=== PATIENT | female | born 1965 | race Caucasian/White ===

== ENCOUNTER 2016-08-17 13:21 | Emergency (ER) | payer BC ==
[2016-08-17 13:33] VITALS: BP 133/84
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
--- NOTE | 2016-08-17 14:27 | CT ---
CT maxillofacial Technique: Multiple axial sections were obtained through the maxillofacial region. Intravenous contrast was not utilized. Findings: Soft tissue swelling as well as soft tissue air identified within the right cheek. Mild areas of increased density within the subcutaneous fat of the right cheek are seen compatible with small areas of hematoma. Paranasal sinuses shows minimal mucosal thickening within the left sphenoid sinus. Small retention cyst is noted within the right maxillary sinus measuring 5 mm. Other sinuses are clear. No air-fluid levels are seen within the paranasal sinuses. No facial bone fracture is identified. Impression: 1. Soft tissue swelling/hematoma within the right cheek. Soft tissue air is noted within the right cheek and please correlate if there has been soft tissue injury. 2. Sinus findings which are likely pre-existing. 3. Nothing seen to indicate facial bone fracture. Diagnostic code #3
== END 2016-08-17 14:40 | disposition home or self-care (01) ==
LOC: JD.ED 13:21
DX: T74.11XA Adult physical abuse, confirmed, initial encounter (principal); S09.93XA Unspecified injury of face, initial encounter; F41.9 Anxiety disorder, unspecified; F17.210 Nicotine dependence, cigarettes, uncomplicated; Y04.2XXA Assault by strike against or bumped into by another person, initial encounter
CPT/HCPCS: 70486; 70486-26; 99284; 99284-25

== ENCOUNTER 2024-06-19 23:26 | Emergency (ER) | payer BC ==
[2024-06-19 23:36] VITALS: BP 136/87; PULSE 97
[2024-06-19] MEDS: Acetaminophen/oxyCODONE 325-5 MG Tab PO ONE (23:43)
== END 2024-06-19 23:55 | disposition home or self-care (01) ==
LOC: JD.ED 23:26
DX: M62.830 Muscle spasm of back (principal); Z79.899 Other long term (current) drug therapy
CPT/HCPCS: 99283; A9270; 99284